=== PATIENT | female | born 1975 | race Two or more races ===

== ENCOUNTER 2016-05-12 06:55 | Emergency (ER) | payer MEDICAID, OTHER ==
[2016-05-12] MEDS ORDERED: ACETAMINOPHEN 500 MG TABLET ONE (07:13)
[2016-05-12] MEDS ORDERED: IBUPROFEN 600 MG TABLET ONE (07:13)
--- NOTE | 2016-05-12 07:46 | RAD ---
History: Cough with chest pain. Comparison: None. Technique: 2 views Findings: Multilevel thoracic degenerative changes are identified. The heart size is within expected. There is mild prominence of the central pulmonary vascular structures. No consolidation, effusion or pneumothorax is visualized. The hilar and mediastinal structures are intact. Impression: 1. Mild central vascular prominence. 2. An otherwise negative two-view chest.
== END 2016-05-12 08:22 | disposition home or self-care (01) ==
LOC: ED 06:55
DX: J06.9 Acute upper respiratory infection, unspecified (principal); M94.0 Chondrocostal junction syndrome [Tietze]; H60.91 Unspecified otitis externa, right ear
CPT/HCPCS: 71020; 99283 ×2; A9270 ×2